=== PATIENT | male | born 1965 | race Caucasian/White ===

== ENCOUNTER 2016-10-16 06:50 | Outpatient (RCR) | payer MEDICARE, MEDICAID ==
[2016-10-01 16:57] LABS: ALANINE AMINOTRANSFERASE 115 U/L (0-55); ALBUMIN 4.6 G/DL (3.2-4.5); ANION GAP 9 MMOL/L (5-14); ASPARTATE AMINO TRANSFERASE 47 U/L (5-34); BILIRUBIN,TOTAL 0.4 MG/DL (0.1-1.0); BLOOD UREA NITROGEN 12 MG/DL (7-18); BUN/CREATININE RATIO 15; CALCIUM 9.7 MG/DL (8.5-10.1); CARBON DIOXIDE 28 MMOL/L (21-32); CHLORIDE 105 MMOL/L (98-107); CREATININE SERUM 0.81 MG/DL (0.60-1.30); GFR ESTIMATED > 60; GLUCOSE 102 MG/DL (70-105); POTASSIUM 3.7 MMOL/L (3.6-5.0); SODIUM 142 MMOL/L (135-145); TOTAL PROTEIN 7.6 G/DL (6.4-8.2)
[2016-10-01 17:17] LABS: THYROID STIMULATING HORMONE 1.94 UIU/ML (0.35-4.94)
[2016-10-02 08:45] LABS: LUTEINIZING HORMONE 1.8 mIU/mL (1.5-9.3); PROLACTIN 6.4 ng/mL (2.1-17.7)
[2016-10-02 08:46] LABS: FOLLICLE STIMULATING HORMONE 5.2 mIU/mL (1.4-18.1)
[~2016-10-16 06:50] MED LIST: CIPR500T4 PO; NAPR500T PO; PHEN-640 PO; TAMS0.4C2 PO
[2016-10-22 08:41] LABS: CORTISOL CREATININE RATIO URIN 14.53 ug/g CRT; CREAT/CORTI URINE REF LAB 2035 MG/DAY (1000-2500); CREATININE URINE REF MG/DL 148 MG/DL
[2016-10-22 08:42] LABS: CORTISOL INTERP SEE FOOTNOTE
== END 2016-12-30 | disposition home or self-care (01) ==
LOC: LAB 06:50
PROVIDERS: ATTEND Internal Medicine Endocrinology, Diabetes & Metabolism
DX: D35.2 Benign neoplasm of pituitary gland (principal)
CPT/HCPCS: 36415; 80053; 82024; 82530; 82533; 82570; 82670; 83001; 83002; 83935; 84146; 84305; 84403; 84439; 84443

== ENCOUNTER → 2016-12-26 | Outpatient (CLI) | payer MEDICARE, MEDICAID ==
--- OUTSIDE RECORDS SUMMARY | 2016-12-26 12:49 | XMS REPORT | Continuity of Care Document ---
Author Author [facility] Organization [facility] Address Unknown Phone Unavailable Care Team Providers Care Net Developer Consultant Name Role Phone Kimberly Mloina PCP [phone] Source Comments Some departments are not documenting in the electronic medical record. If you do not see the information that you expected, contact Release of Information in the Health Information Management department at [phone] for further assistance in locating additional records.[facility] Active Allergies and Adverse Reactions Allergen Noted Date Severity Reactions Comments Aspirin 11/19/2016 Low NAUSEA ONLY Current Medications Prescription Sig. Disp. Refills Start End Date Status Date oxyCODONE/acetaminophen Take 1 Tab by mouth every Active (PERCOCET; ENDOCET; 12 hours as needed for ROXICET) 5/325 mg tablet Pain morphine IR (MS-IR) 30 mg Take 30 mg by mouth twice Active tablet daily gabapentin (NEURONTIN) Take 1,200 mg by mouth Active 400 mg capsule every 8 hours. other medication 1 Dose daily. Active Anti-hypertensive, name and strength unknown other medication 1 Dose as Needed. Active Migraine medication, name unknown Active Problems Not on file Most Recent Encounters Date Type Specialty Providers Description 11/19/2016 Office Visit Neurosurgery Onofre Petersen MD Pituitary tumor (Primary Dx) 11/09/2016 Ancillary Radiology Outpatient, Radiologist Diagnosis unknown Orders (Primary Dx) 11/07/2016 Documentation Oncology Onofre Petersen MD 10/30/2016 Telephone Oncology Rosmery Rose RN Navigation Assessment Social History Tobacco Use Types Packs/Day Years Used Date Current Every Day Smoker Cigarettes 0.5 Alcohol Use Drinks/Week oz/Week Comments Yes 0 Standard 0.0 rarely, 1-2 times per year drinks or equivalent Last Filed Vital Signs Vital Sign Reading Time Taken Blood Pressure 112/77 11/19/2016 12:04 PM SITE ACQUISITION MANAGER Pulse 70 11/19/2016 12:04 PM SITE ACQUISITION MANAGER Temperature - - Respiratory Rate - - Height 1.753 m (5' 9") 11/19/2016 12:04 PM SITE ACQUISITION MANAGER Weight 128.368 kg (283 lb) 11/19/2016 12:04 PM SITE ACQUISITION MANAGER Body Mass Index 41.77 11/19/2016 12:04 PM SITE ACQUISITION MANAGER Oxygen Saturation - - Plan of Care Health Maintenance Due Date Last Done Comments Physical (Comprehensive) 1974 Exam Pertussis Vaccine 1978 Tetanus Vaccine 1984 Influenza Vaccine 07/12/2016 Results from Last 3 Months Not on file
== END ==
LOC: LAB 12:40
PROVIDERS: ATTEND Internal Medicine Endocrinology, Diabetes & Metabolism
DX: E29.1 Testicular hypofunction (principal); Z12.5 Encounter for screening for malignant neoplasm of prostate
CPT/HCPCS: 36415; 84153; 84403

== ENCOUNTER → 2017-04-17 | Outpatient (CLI) | payer MEDICARE, MEDICAID | LOC: LAB 12:41 | PROVIDERS: ATTEND Pediatrics | DX: B18.2 Chronic viral hepatitis C (principal) | CPT/HCPCS: 36415; 87522 ==

== ENCOUNTER → 2017-05-15 | Outpatient (CLI) | payer MEDICARE, MEDICAID ==
[2017-05-18 22:38] LABS: DACLATASVIR RESISTANCE NOT PREDICTED; ELBASVIR RESISTANCE NOT PREDICTED; LEDIPASVIR RESISTANCE NOT PREDICTED; OMBITASVIR RESISTANCE PROBABLE
[2017-05-20 07:30] LABS: VELPATASVIR RESISTANCE NOT PREDICTED
== END ==
LOC: LAB 13:16
PROVIDERS: ATTEND Pediatrics
DX: B18.2 Chronic viral hepatitis C (principal)
CPT/HCPCS: 36415; 87902

== ENCOUNTER 2018-02-03 19:20 | Emergency (ER) | payer MEDICARE, MEDICAID ==
[~2018-02-03] VITALS: Ht 175.3 cm; Wt 133.8 kg
[~2018-02-03 19:20] MED LIST changes: +NAPR-1071 PO; -NAPR500T PO
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
[2018-02-03] MEDS ORDERED: NAPR-915 (19:58)
[2018-02-03] MEDS ORDERED: CYCL10TA9 (19:58)
[2018-02-03] MEDS ORDERED: GABA-490 (19:58)
[2018-02-03] MEDS ORDERED: TIZA4TAB3 (19:58)
--- NOTE | 2018-02-03 20:30 | Diagnostic Imaging Report ---
PROCEDURE: CT head, face, and cervical spine without contrast. TECHNIQUE: Multiple contiguous axial images were obtained through the head, neck, and facial bones without the use of intravenous contrast. Sagittal and coronal reformations through the cervical spine and facial bones were also performed. INDICATION: Head, neck, and face pain after a fall. FINDINGS: The ventricles and sulci are within normal limits. There is no hydrocephalus. There is no midline shift. There is no intracranial mass, hemorrhage or extra-axial fluid collection. There is no CT evidence of a transcortical infarct. The calvarium is intact. The frontal, ethmoid, sphenoid and maxillary sinuses are clear. The nasal bone is intact. The zygomatic arches are intact. The pterygoid plates are intact. Mastoid air cells are clear. There are no displaced facial bone fractures. The alignment of the cervical spine is normal. The vertebral body heights are well-maintained. There is no fracture or traumatic subluxation. There are mild degenerative changes. The prevertebral soft tissues are within normal limits. IMPRESSION: No acute intracranial abnormality. No displaced facial bone fractures. Mild cervical spondylosis without acute fracture or traumatic subluxation Dictated by: Dictated on workstation # [id number]
--- NOTE | 2018-02-03 20:39 | Diagnostic Imaging Report ---
PROCEDURE: CT chest without contrast. TECHNIQUE: Multiple contiguous axial images were obtained through the chest without the use of intravenous contrast. INDICATION: Fall with pain in the anterior left chest wall and shoulder. FINDINGS: There are no discrete pulmonary nodules, masses or infiltrates. There is no pleural or pericardial fluid. There is no pneumothorax. Heart size is normal. There is no pathologically enlarged adenopathy in the chest. There are mild degenerative changes in the spine. There is no fracture. There is hepatomegaly. IMPRESSION: No acute abnormality within the chest. Hepatomegaly. Dictated by: Dictated on workstation # [id number]
--- NOTE | 2018-02-03 21:05 | Diagnostic Imaging Report ---
INDICATION: Pain. Three views of the left ankle were obtained. FINDINGS: The alignment is normal. The plafonds and talar dome are intact. The ankle mortise is symmetric. There is no fracture or dislocation. IMPRESSION: Mild degenerative changes, however, no acute fracture or dislocation. Dictated by: Dictated on workstation # [id number]
--- NOTE | 2018-02-03 21:06 | Diagnostic Imaging Report ---
INDICATION: Shoulder pain. 3 views of right shoulder were obtained. FINDINGS: There is arthrosis of the acromioclavicular joint. There is no fracture or dislocation. Soft tissues are unremarkable. Right lung apex is clear. IMPRESSION: Arthrosis of the acromioclavicular joint otherwise unremarkable. Dictated by: Dictated on workstation # [id number]
--- NOTE | 2018-02-03 21:12 | Diagnostic Imaging Report ---
INDICATION: Fall. Two views of the left humerus were obtained. FINDINGS: The humerus is intact. There is no fracture. There does appear be partial dislocation of the left shoulder. Elbow is unremarkable. IMPRESSION: No evidence of fracture although partial dislocation of the shoulder cannot be excluded. Recommend clinical correlation and if warranted dedicated shoulder views. Dictated by: Dictated on workstation # [id number]
--- NOTE | 2018-02-03 21:41 | Diagnostic Imaging Report ---
INDICATION: Shoulder pain. 3 views were obtained. FINDINGS: There appears to be a posterior dislocation of the left shoulder. On the scapular Y view there is a lucency in the humeral head. A nondisplaced fracture cannot be excluded. Left lung apex is clear. Soft tissues are unremarkable. IMPRESSION: Findings suspect for a posterior dislocation of the left shoulder with questionable nondisplaced humeral head fracture. Further evaluation with CT is recommended. Dictated by: Dictated on workstation # [id number]
[2018-02-03] MEDS ORDERED: oxyCODONE/APAP 5/325MG (PERCOCET 5) TABLET PO ONE (22:00)
[2018-02-03] MEDS ORDERED: AMOX500C2 PO (22:08)
[2018-02-03 22:28] VITALS: BP 116/75
--- NOTE | 2018-02-04 07:14 | Diagnostic Imaging Report ---
PROCEDURE: CT left upper extremity without contrast. TECHNIQUE: Multiple contiguous axial images were obtained through the left upper extremity without the use of intravenous contrast. INDICATION: Fall with left shoulder pain Overall alignment of the shoulder joints reveals no evidence of dislocation. Small amount of joint fluid is present. There does appear to be nonacute fracture through the junction of scapular body and glenoid process. No definite acute fracture is seen. There is mild acromioclavicular degenerative change. IMPRESSION: Mild degenerative changes of left shoulder without evidence of acute fracture or dislocation. There is mild edema and/or inflammation surrounding the left shoulder joint. There is mild degenerative change at the acromioclavicular joint. Dictated by: Dictated on workstation # [id number]
== END 2018-02-03 22:28 | disposition home or self-care (01) ==
LOC: EDUNIT# 19:20 → ER 19:23
DX: S43.402A Unspecified sprain of left shoulder joint, initial encounter (principal); Z90.89 Acquired absence of other organs; Z90.49 Acquired absence of other specified parts of digestive tract; W01.198A Fall on same level from slipping, tripping and stumbling with subsequent striking against other object, initial encounter; Y92.009 Unspecified place in unspecified non-institutional (private) residence as the place of occurrence of the external cause
CPT/HCPCS: 70450; 70486; 71250; 72125; 73030; 73060; 73200; 73610

== ENCOUNTER → 2018-02-08 | Outpatient (CLI) | payer MEDICARE, MEDICAID ==
[~2018-02-08] MED LIST changes: +AMOX500C2 PO; +CYCL10TA9; +GABA-490; +GADOBUTROL 15 MMOL/15 ML (GADAVIST) VIAL IV ONE; +NAPR-915; +TIZA4TAB3
[2018-02-08 10:03] LABS: BUN/CREATININE RATIO 23; CREATININE SERUM 0.79 MG/DL (0.60-1.30); GFR ESTIMATED > 60
--- NOTE | 2018-02-08 12:17 | Diagnostic Imaging Report ---
CLINICAL INDICATION: Patient had sudden left hearing loss since June 2017. Patient has history of pituitary tumor with surgery and has multiple MRIs here. EXAM: MRI of the brain/ IACs performed without and with 13 cc of Gadavist IV contrast. Sequences include sagittal T1 localizer, axial T2, axial flair, axial T1, axial gradient echo, DWI, ADC map, axial T1 thin, axial T2 thin, coronal T1 thin, axial T2 3D SPACE, axial T1 post contrast whole brain, coronal T1 fat-sat post IV contrast whole brain, sagittal T1 post IV contrast whole brain, axial T1 post IV contrast thin fat sat, and coronal T1 post IV contrast thin. COMPARISONS: MRI of the brain/pituitary dated 05/17/2016. FINDINGS: TEMPORAL BONE STRUCTURES: There is a small amount of fluid in the left mastoid air cells. Otherwise, the temporal bone structures are unremarkable. The internal auditory canal, otic capsule, middle ear, and temporal bone structures have normal anatomic appearance and are unremarkable. The visualized nerves VII and VIII within the IACs bilaterally and cisternal portions have normal appearance. CISTERNAL STRUCTURES: There is no cisternal mass seen. The remainder of the visualized cranial nerves in the basal cistern regions are unremarkable. BRAIN PARENCHYMA: There is stable appearance and configuration of the pituitary gland with no gross developing mass seen. Otherwise, the brain parenchyma is unremarkable for age with normal dumont/ white matter distinction. There is no significant architectural distortion, midline shift, or herniation. There is no abnormal IV contrast enhancement or diffusion restriction signal changes. VENTRICLES: Stable configuration of the ventricles with no evidence of hydrocephalus. VISUALIZED INTRACRANIAL VESSELS: Unremarkable as visualized. SKULL/ ORBITS: Unremarkable. VISUALIZED PARANASAL SINUSES: Unremarkable. 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 IMPRESSION: 1: There is a small amount of fluid in the left mastoid air cells. Otherwise, unremarkable MRI of the internal auditory canals, temporal bone structures, and basal cisterns. 2: Stable brain parenchymal findings with no acute interval process. 3: Stable appearance and configuration of the sellar and suprasellar regions with no gross developing mass seen. Dictated by: Dictated on workstation # [id number]
== END ==
LOC: RAD 09:05
PROVIDERS: ATTEND Otolaryngology Otolaryngology/Facial Plastic Surgery
DX: H90.42 Sensorineural hearing loss, unilateral, left ear, with unrestricted hearing on the contralateral side (principal); H74.8X2 Other specified disorders of left middle ear and mastoid; Z85.858 Personal history of malignant neoplasm of other endocrine glands; Z98.890 Other specified postprocedural states
CPT/HCPCS: 36415; 70553; 82565; 84520

== ENCOUNTER → 2018-05-22 | Outpatient (CLI) | payer MEDICARE, MEDICAID ==
[~2018-05-22] MED LIST changes: -GADOBUTROL 15 MMOL/15 ML (GADAVIST) VIAL IV ONE
== END ==
LOC: CARD 10:04
PROVIDERS: ATTEND Family Medicine
DX: R60.9 Edema, unspecified (principal); R79.89 Other specified abnormal findings of blood chemistry; I07.1 Rheumatic tricuspid insufficiency
CPT/HCPCS: 93306

== ENCOUNTER 2020-03-22 19:12 | Emergency (ER) | payer MEDICARE, MEDICAID ==
[~2020-03-22] VITALS: Ht 175 cm; Wt 120.0 kg
[2020-03-22] VITALS (7 sets, daily range): BP systolic 128–151; BP diastolic 84–103
[~2020-03-22 19:12] MED LIST changes: -TIZA4TAB3; +TIZA4TAB4
[2020-03-22] MEDS ORDERED: NS IV 1000 ML 1,000 ML IV SCH (19:45)
[2020-03-22] MEDS ORDERED: LORazepam INJ 2 MG/ML (ATIVAN) VIAL IVP PRN ×2 (19:45→20:30)
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
[2020-03-22 20:06] LABS: BASOPHILS % (AUTO) 0 % (0-10); EOSINOPHILS # (AUTO) 0.9 10^3/uL (0.0-0.3); EOSINOPHILS % (AUTO) 9 % (0-10); HEMATOCRIT 45 % (40-54); HEMOGLOBIN 15.4 G/DL (13.3-17.7); LYMPHOCYTES # (AUTO) 2.7 X 10^3 (1.0-4.0); LYMPHOCYTES % (AUTO) 28 % (12-44); MEAN CORPUSCULAR HEMOGLOBIN 32 PG (25-34); MEAN CORPUSCULAR HGB CONC 34 G/DL (32-36); MEAN CORPUSCULAR VOLUME 94 FL (80-99); MEAN PLATELET VOLUME 9.1 FL (7.4-10.4); MONOCYTES # (AUTO) 0.7 X 10^3 (0.0-1.0); MONOCYTES % (AUTO) 7 % (0-12); NEUTROPHILS # (AUTO) 5.5 X 10^3 (1.8-7.8); NEUTROPHILS % (AUTO) 56 % (42-75); PLATELET COUNT 347 10^3/uL (130-400); RED CELL DISTRIBUTION WIDTH 12.8 % (10.0-14.5); WHITE BLOOD COUNT 9.9 10^3/uL (4.3-11.0)
[2020-03-22 20:21] LABS: BUN/CREATININE RATIO 17; CALCIUM 9.8 MG/DL (8.5-10.1); CARBON DIOXIDE 24 MMOL/L (21-32); CHLORIDE 103 MMOL/L (98-107); CREATININE SERUM 0.84 MG/DL (0.60-1.30); GFR ESTIMATED > 60; GLUCOSE 100 MG/DL (70-105); POTASSIUM 3.5 MMOL/L (3.6-5.0); SODIUM 140 MMOL/L (135-145)
--- NOTE | 2020-03-22 20:36 | NUR ---
Dr. San here to consult with pt at this time.
[2020-03-22] MEDS ORDERED: proPOfol 200 MG/20 ML (DIPRIVAN) VIAL IV ONE (20:44)
[2020-03-22] MEDS ORDERED: MIDAZOLAM 2 MG/2 ML (VERSED) VIAL ONE (20:44)
[2020-03-22] MEDS ORDERED: SUCCINYLCHOLINE INJ 100 MG/5 ML SYR ONE (20:44)
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
[2020-03-22] MEDS ORDERED: SEVOFLURANE (ULTANE) 15 ML INHAL SOLN ONE ×6 (20:55→22:47)
--- NOTE | 2020-03-22 22:56 | Progress Note-Post Operative ---
Post-Operative Progess Note Surgeon (s)/Information Management Specialist (s) Surgeon AMELIA BELTRNÁ DO Information Management Specialist: none Pre-Operative Diagnosis Impacted food bolus Post-Operative Diagnosis same plus Gastritis Hiatal Hernia Esophagitis Procedure & Operative Findings Date of Procedure 03/22/20 Procedure Performed/Findings EGD with removal of food bolus EGD with bx Anesthesia Type GET Estimated Blood Loss Estimated blood loss (mL): scant Specimens/Packing Specimens Removed antral bx GE jxn bx AMELIA BELTRÁN DO March 22, 2020 22:55
--- NOTE | 2020-03-22 22:57 | Endoscopy Discharge Instruct ---
Endo Procedure/Findings Findings 1.: Gastritis 2.: Hiatal Hernia 3.: Other Findings (Food Bolus) Discharge Instructions - Activity: You might feel a little sleepy until tomorrow. This is due to the medicine you received to relax you. Until tomorrow, you should: NOT drive a car, operate machinery or power tools. NOT drink any alcoholic beverages. NOT make any important decisions or sign importortant papers. Do not return to work until tomorrow, unless otherwise instructed. Resume previous activities tomorrow. Diet: Start by taking liquids. If you tolerate liquids, advance to solid food. Make an appointment for one week, 1.: EGD in 6-8 weeks Notify Physician - If you experience excessive bleeding, unusual abdominal pain, fever, or chest pain, contact your doctor immediately. AMELIA BELTRÁN DO March 22, 2020 22:57
--- NOTE | 2020-03-22 23:28 | OPERATIVE REPORT ---
DATE OF SERVICE: 03/22/2020 PREOPERATIVE DIAGNOSIS: Dysphagia, food bolus. POSTOPERATIVE DIAGNOSES: 1. Dysphagia, impacted food bolus. 2. Gastritis. 3. Hiatal hernia. 4. Esophagitis. PROCEDURES: 1. EGD with removal of food bolus, which took approximately an hour and 45 minutes. 2. EGD with biopsy. SURGEON: Erwin Beltrán DO MANAGER SUBWAY: None. ANESTHESIA: General endotracheal tube. SPECIMEN: Biopsy from the antrum, biopsy of the GE junction. BLOOD LOSS: Scant. FLUIDS: Per anesthesia. POSTOPERATIVE CONDITION: Stable. INDICATION FOR PROCEDURE: The patient is a 54-year-old male, who was eating and got some piece of meat stuck, was in moderate to severe distress because of this, hacking up clear liquids, stating he was unable to swallow at all. FINDINGS: The patient had a large piece of meat stuck right at the top of the esophagus just past tracheal opening. Then once we were able to get this freed, noted gastritis, looked like possible ulcers and a large hiatal hernia. PROCEDURE NOTE: After informed consent was obtained, the patient was brought to the operating room, placed in the ER bed. He was intubated, then used the EGD, placed the scope down the mouth and just past the trachea at ET tube, at the top of the esophagus, saw a large piece of meat. I then spent the next hour and 45 minutes attempting to grab with a Lozada Net and broke two Lozada Nets, tried to grab with a loop, unable to grab with a loop and then used biopsy forceps to start taking bites and pulled it out. I put the scope in, take a bite and then pulled out, did this close to 40 or 50 times, but only unfortunately taken very small pieces out. Actually, broke one of the biopsy forceps and had to get another one. Finally, after about an hour and 45 minutes, while grabbing for another bite, felt the food bolus move a little bit and at this point, I was then able to push the food bolus all the way down into the stomach. Once it was into the stomach, then pushed towards the antrum, took a picture. There was some inflammation and a possible ulcer, did a biopsy here, pushed into the duodenum. Duodenum looked fine. Retroflexed the scope, saw a large hiatal hernia and then pulled the scope back up into the GE junction, did a biopsy of the GE junction, took a picture of the large piece of meat and then took pictures of the esophagus. Lower esophagus looked good. Upper esophagus, there is some irritation from the impaction and fluid bolus, but no bleeding. At this point, then pushed the scope back down into the stomach, suctioned all the air out of the stomach and then pulled the scope up the esophagus and out the mouth. The patient tolerated the procedure and transferred to recovery room in stable condition. Job ID: [id number] DocumentID: [id number] Dictated Date: 03/22/2020 23:02:44 Turbine Assembler Date: 03/22/2020 23:27:49 Dictated By: ERWIN BELTRÁN DO
[2020-03-23 00:13] VITALS: BP 115/85
[2020-03-23 00:14] VITALS: BP 115/85
--- NOTE | 2020-03-23 00:25 | NUR ---
PT ALERT AND ORIENTED X4. PT ABLE TO URINATE, DRINK WATER AND BROTH, PT CURRENTLY WORKING ON EATING ICE CREAM. PT ABLE TO WALK AROUND THE ROOM. NO COMPLAINTS OF N/V AT THIS TIME. PT DOES COMPLAIN OF SORENESS IN THROAT. IV TAKEN OUT-TIP INTACT.
--- NOTE | 2020-03-23 12:53 | Anesthesia-General Post-Op ---
General Post Op Complications Complications None Follow Up Care/Instructions Patient Instructions None needed. Anesthesia/Patient Condition Patient Condition Pt. discharged, no complaints noted in chart, stable vital signs READING,SRIKANTH Wilson CRNA March 23, 2020 12:53
== END 2020-03-22 20:45 | disposition other institution (70) ==
LOC: EDUNIT# 19:12 → ER 19:14
DX: T18.128A Food in esophagus causing other injury, initial encounter (principal); Z80.8 Family history of malignant neoplasm of other organs or systems
CPT/HCPCS: 36415; 80048; 80320; 85025; 99283